=== PATIENT | female | born 1970 | race Caucasian/White ===

== ENCOUNTER → 2017-02-02 | Outpatient (CLI) | payer OTHER ==
[~2017-02-02] MED LIST: MULT-212 PO; OMEG1CAP6 PO; OMEP20TA63 PO
--- NOTE | 2017-02-02 16:49 | KCIC ---
INDICATION: Low back pain and left radiculopathy. Left leg numbness. Symptoms have developed within the last couple of weeks. TECHNIQUE: Sagittal T1, sagittal T2, sagittal STIR, axial T1, and axial T2 sequences are provided. No comparison is available. FINDINGS: There is no malalignment. There is no marrow edema. There is no worrisome marrow lesion. There is an L1 hemangioma. There is minimal disc desiccation. Disc height is relatively maintained. The conus medullaris is normal in signal intensity and in position. Subcutaneous edema is noted. The numbering system assumes 5 lumbar type vertebral bodies. Findings by individual level are as follows: L1-L2, L2-L3: There is no canal or foraminal compromise. L3-L4: There is a diffuse disc bulge and there is a left foraminal herniation with annular fissure. There is minimal left foraminal narrowing, herniation does not contact the exiting nerve root. L4-L5: Minimal disc bulge and facet hypertrophy are noted without canal or foraminal compromise. L5-S1: Minimal facet hypertrophy is noted without canal or foraminal compromise. IMPRESSION: Minimal degenerative disc disease and facet hypertrophy are noted in the lumbar spine, without any high-grade canal or foraminal compromise. Electronically signed by: Ranjit Cifuentes MD (02/02/2017 4:47 PM) [facility]
== END | disposition home or self-care (01) ==
LOC: KCIC MRI 15:41
DX: M51.17 Intervertebral disc disorders with radiculopathy, lumbosacral region (principal); R20.0 Anesthesia of skin
CPT/HCPCS: 72148

== ENCOUNTER → 2017-02-04 | Outpatient (CLI) | payer OTHER ==
[2017-02-04 16:16] LABS: CREATININE 0.8 mg/dL (0.6-1.0); GFR 77.2
== END | disposition home or self-care (01) ==
LOC: LAB 15:29
PROVIDERS: ATTEND Psychiatry & Neurology Neurology
DX: R20.2 Paresthesia of skin (principal)
CPT/HCPCS: 36415; 82525; 82565; 82607; 84520

== ENCOUNTER 2017-02-11 15:34 | Emergency (ER) | payer OTHER ==
[~2017-02-11] VITALS: Ht 162.6 cm; Wt 122.2 kg
[~2017-02-11 15:34] MED LIST changes: -GADOBUTROL 7.5 MMOL/7.5 ML VIAL IV ONE
[2017-02-11] MEDS ORDERED: DEXAMETHASONE SOD PHOS 20 MG/5 ML VIAL. IV ONE (16:15)
[2017-02-11 16:16] VITALS: BP 127/68
[2017-02-11 16:17] LABS: BASO # 0.1 x10^3/uL (0.0-0.2); BASO % 1 % (0-3); EOS % 9 % (0-3); LYMPH # 2.2 x10^3/uL (1.0-4.8); LYMPH % 19 % (24-48); MEAN CORPUSCULAR HEMOGLOBIN 29 pg (25-35); MEAN CORPUSCULAR HGB CONC 34 g/dL (31-37); MEAN CORPUSCULAR VOLUME 84 fL (79-100); MONO % 7 % (0-9); NEUT % 65 % (31-73); PLATELET COUNT 246 x10^3/uL (140-400); RED BLOOD COUNT 5.22 x10^6/uL (3.50-5.40); RED CELL DISTRIBUTION WIDTH 12.3 % (11.5-14.5); WHITE BLOOD COUNT 11.8 x10^3/uL (4.0-11.0)
--- NOTE | 2017-02-11 16:17 | PHYS DOC ---
Past Medical History Past Medical History: GERD, Ovarian Cyst Past Surgical History: Cholecystectomy, Additional Past Surgical Histo: OVARY REMOVAL Alcohol Use: Heavy Drug Use: None Adult General Chief Complaint Chief Complaint: OTHER COMPLAINTS [facility] HPI Patient is a 46 year old female who presents with one month history of intermittent and progressive left leg radicular symptoms denied any back pain but did have bilateral sided upper abdominal pain over this course of time. 3 months prior did have an episode of shingles that around that level on her abdomen. Denies any saddle paresthesias fecal or urinary incontinence or retention. Still able to walk has no complaints involving the upper extremities nor any headache or blurry vision or difficulty speaking or swallowing. In by her PCP about 10 days ago had a lumbar spine MRI done which was essentially unremarkable. Today after following up with a neurologist , and thoracic MRI was obtained which showed a fairly large thoracic spinal cord tumor and involving some cord edema as well. She was referred to our ER for initial evaluation, IV steroids per the request of , and arrangement of neurosurgery transfer to per request (which was done prior to pt arrival in the ED). Review of Systems Review of Systems Constitutional: Denies fever or chills [] Eyes: Denies change in visual acuity, redness, or eye pain [] HENT: Denies nasal congestion or sore throat [] Respiratory: Denies cough or shortness of breath [] Cardiovascular: No additional information not addressed in HPI [] GI: Denies abdominal pain, nausea, vomiting, bloody stools or diarrhea [] : Denies dysuria or hematuria [] Musculoskeletal: Denies back pain or joint pain [] Integument: Denies rash or skin lesions [] Neurologic: Denies headache, focal weakness or sensory changes [] Endocrine: Denies polyuria or polydipsia [] Current Medications Current Medications Current Medications Medications (Trade) Dose Ordered Sig/Parrish Start Time Stop Time Status Last Admin Dose Admin Dexamethasone Sodium Phosphate (Decadron) 10 mg 1X ONCE 02/11/17 16:15 02/11/17 16:16 DC 02/11/17 16:14 10 MG Allergies Allergies Allergies Coded Allergies Type Severity Reaction Last Updated Verified No Known Drug Allergies 08/04/13 No Physical Exam Physical Exam Constitutional: Well developed, well nourished, no acute distress, non-toxic appearance. [] HENT: Normocephalic, atraumatic, bilateral external ears normal, oropharynx moist, no oral exudates, nose normal. [] Eyes: PERRLA, EOMI, conjunctiva normal, no discharge. [] Neck: Normal range of motion, no tenderness, supple, no stridor. [] Cardiovascular:Heart rate regular rhythm, no murmur [] Lungs & Thorax: Bilateral breath sounds clear to auscultation [] Abdomen: Bowel sounds normal, soft, no tenderness, no masses, no pulsatile masses. [] Skin: Warm, dry, no erythema, no rash. No vesicular lesions seen.[] Back: No tenderness, no CVA tenderness. [] Extremities: No tenderness, no cyanosis, no clubbing, ROM intact, no edema. [] Neurologic: Alert and oriented X 3, normal motor function, normal sensory function, no focal deficits noted. 5 out of 5 equal motor strength with dorsiflexion and great toe, plantar flexion of the ankle, and straight leg raises. No pain to palpation over the T or L-spine. Patellar reflexes were difficult to obtain secondary to obesity. [] Psychologic: Affect normal, judgement normal, mood normal. [] Current Patient Data Vital Signs Vital Signs Date Time Temp Pulse Resp B/P (MAP) Pulse Ox O2 Delivery O2 Flow Rate FiO2 02/11/17 15:48 98.0 103 20 140/82 (101) 99 Room Air 98.0 Lab Values Laboratory Tests Test 02/11/17 16:10 White Blood Count 11.8 x10^3/uL (4.0-11.0) H Red Blood Count 5.22 x10^6/uL (3.50-5.40) Hemoglobin 15.0 g/dL (12.0-15.5) Hematocrit 44.0 % (36.0-47.0) Mean Corpuscular Volume 84 fL (79-100) Mean Corpuscular Hemoglobin 29 pg (25-35) Mean Corpuscular Hemoglobin Concent 34 g/dL (31-37) Red Cell Distribution Width 12.3 % (11.5-14.5) Platelet Count 246 x10^3/uL (140-400) Neutrophils (%) (Auto) 65 % (31-73) Lymphocytes (%) (Auto) 19 % (24-48) L Monocytes (%) (Auto) 7 % (0-9) Eosinophils (%) (Auto) 9 % (0-3) H Basophils (%) (Auto) 1 % (0-3) Neutrophils # (Auto) 7.6 x10^3uL (1.8-7.7) Lymphocytes # (Auto) 2.2 x10^3/uL (1.0-4.8) Monocytes # (Auto) 0.8 x10^3/uL (0.0-1.1) Eosinophils # (Auto) 1.0 x10^3/uL (0.0-0.7) H Basophils # (Auto) 0.1 x10^3/uL (0.0-0.2) Sodium Level 139 mmol/L (136-145) Potassium Level 3.7 mmol/L (3.5-5.1) Chloride Level 104 mmol/L (98-107) Carbon Dioxide Level 24 mmol/L (21-32) Anion Gap 11 (6-14) Blood Urea Nitrogen 19 mg/dL (7-20) Creatinine 0.8 mg/dL (0.6-1.0) Estimated GFR (Cockcroft-Gault) 77.2 BUN/Creatinine Ratio 24 (6-20) H Glucose Level 104 mg/dL (70-99) H Calcium Level 9.2 mg/dL (8.5-10.1) Total Bilirubin Pending Aspartate Amino Transferase (AST) Pending Alanine Aminotransferase (ALT) Pending Alkaline Phosphatase Pending Total Protein Pending Albumin Pending Albumin/Globulin Ratio Pending Laboratory Tests 02/11/17 16:10 Laboratory Tests 02/11/17 16:10 EKG EKG [] Radiology/Procedures Radiology/Procedures [] Course & Med Decision Making Course & Med Decision Making Pertinent Labs and Imaging studies reviewed. (See chart for details) [Patient is completely medically stable. 1600 I discussed case on the phone again with Dr. Matthews, 1601 I've contacted [facility] and I am awaiting a call back. In the meantime routine labs obtained and the patient's been given 10 of dexamethasone IV [facility] accepted the transfer team [address] Mcclellan] Hector Disclaimer Dragon Disclaimer This electronic medical record was generated, in whole or in part, using a voice recognition dictation system. Departure Departure Impression: Primary Impression: Spinal cord tumor Disposition: TRANSFER [facility] HOSP Condition: STABLE Referrals: MATTHEW ANGEL (PCP) OFE DUTTON MD Feb 11, 2017 16:17
[2017-02-11 16:30] LABS: CALCIUM 9.2 mg/dL (8.5-10.1); CREATININE 0.8 mg/dL (0.6-1.0); GFR 77.2; POTASSIUM 3.7 mmol/L (3.5-5.1)
[2017-02-11 16:36] LABS: ALBUMIN 3.7 g/dL (3.4-5.0); ALBUMIN/GLOBULIN RATIO 0.9 (1.0-1.7); TOTAL BILIRUBIN 0.2 mg/dL (0.2-1.0); TOTAL PROTEIN 7.7 g/dL (6.4-8.2)
== END 2017-02-11 17:18 | disposition home or self-care (01) ==
LOC: ER 15:34
DX: C72.0 Malignant neoplasm of spinal cord (principal); K21.9 Gastro-esophageal reflux disease without esophagitis; F10.10 Alcohol abuse, uncomplicated
CPT/HCPCS: 36415; 80053; 85025; 96374; 99285; J1100

== ENCOUNTER → 2017-02-11 | Outpatient (CLI) | payer OTHER ==
[~2017-02-11] MED LIST changes: +GADOBUTROL 7.5 MMOL/7.5 ML VIAL IV ONE
--- NOTE | 2017-02-11 13:02 | KCIC ---
MRI of the thoracic spine without and with contrast 02/11/2017 CLINICAL HISTORY: Mid back pain with left leg numbness and tingling for one month. TECHNIQUE: Unenhanced T1-weighted, T2-weighted and inversion recovery sagittal and T1-weighted and T2-weighted axial images of the thoracic spine were obtained. After the intravenous administration of 12 cc of Gadavist, enhanced T1-weighted sagittal and axial images of the thoracic spine were obtained. T2-weighted sagittal images of the cervical, thoracic and lumbar spine were obtained for localization purposes. FINDINGS: No previous imaging studies are available for comparison. Very mild S-shaped curvature of the thoracolumbar spine is seen. The morphology and signal characteristics of all the disks of the thoracic spine are within normal limits. A 1.2 cm hemangioma is seen involving the L1 vertebral body. The thoracic spinal cord is slightly expanded extending from T5-6 to the superior T9 level. Heterogeneous signal intensity is seen throughout the thoracic spinal cord at this level on the T1-weighted and T2-weighted images.This area measures 7.2 x 0.8 x 0.7 cm in craniocaudal, AP and transverse dimensions. Patchy areas of decreased signal intensity are seen on the T1-weighted and T2-weighted images with patchy areas of increased signal intensity noted suggestive of varying stages of hemorrhage. Increased signal intensity is seen on the T2-weighted images consistent most likely with mild cord edema. No area of appreciable contrast enhancement is seen. 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 No additional area of abnormal signal intensity is seen involving the thoracic spinal cord. On the axial images mild degenerative changes are seen involving the mid and lower thoracic disc spaces. These consist of minimal generalized disc bulges and degenerative changes involving the facet joints. These findings do not result in significant central spinal canal or neural foraminal stenosis at any level. IMPRESSION: The thoracic spinal cord is slightly expanded extending from T5-6 to the superior T9 level. Heterogeneous signal intensity is seen throughout the thoracic spinal cord at this level which measures 7.2 cm in greatest diameter. Increased signal intensity is seen on the T2-weighted images in this region suggestive of mild cord edema. These findings are felt to most likely represent a spinal cord neoplasm as outlined above. Electronically signed by: Yoni Dill MD (02/11/2017 12:59 PM) [facility]
== END | disposition home or self-care (01) ==
LOC: KCIC MRI 08:52
PROVIDERS: ATTEND Psychiatry & Neurology Neurology
DX: M54.6 Pain in thoracic spine (principal); R20.2 Paresthesia of skin; R20.0 Anesthesia of skin
CPT/HCPCS: 72157; A9585

== ENCOUNTER → 2019-05-05 | Outpatient (CLI) | payer OTHER ==
[~2019-05-05] MED LIST changes: +GABA600T7 PO; +GADOTERATE 7.5 MMOL/15ML VIAL. IVP ONE
--- NOTE | 2019-05-06 15:43 | KCIC ---
THORACIC SPINE WO CONTRAST History: Spinal cord mass. Left-sided numbness. Technique: Multiplanar, multi sequential noncontrast MR imaging was performed of the thoracic spine. Comparison: February 11, 2017 Findings: Hemosiderin staining within the thoracic spinal cord extending from the T5 through the T9 level. Decreased spinal cord edema compared to prior. Focal T2 hyperintense lesion within the right anterior spinal cord at the T7 level measures 3 mm. Normal vertebral body alignment. Normal height. No fracture. No significant canal narrowing. No neuroforaminal narrowing. L1 vertebral body hemangioma. Impression: 1. Mid thoracic spinal cord lesion at the T7 level with adjacent hemosiderin staining, favor spinal cavernous malformation Electronically signed by: Aly Wood DO (05/06/2019 3:40 PM) [facility]
== END | disposition home or self-care (01) ==
LOC: KCIC MRI 07:52
PROVIDERS: ATTEND Physician Assistant Medical
DX: G95.89 Other specified diseases of spinal cord (principal)
CPT/HCPCS: 72146

== ENCOUNTER → 2020-10-11 | Outpatient (CLI) | payer OTHER ==
[~2020-10-11] MED LIST changes: -GADOTERATE 7.5 MMOL/15ML VIAL. IVP ONE
--- NOTE | 2020-10-11 16:43 | KCIC ---
EXAM: MRI BRAIN WITHOUT CONTRAST. HISTORY: Dizziness, abnormal sensation, spinal cavernoma. TECHNIQUE: Magnetic resonance images of the brain were obtained without intravenous contrast. COMPARISON: None. FINDINGS: There is no diffusion restriction. There are no T1 or T2 signal abnormalities. The ventricles are nor mal in size and position. There is mild mucosal thickening within ethmoid air cells and maxillary sinuses. The orbits are unrem arkable. The temporal bones are unremarkable. The calvarium demonstrates no suspicious lesions. IMPRESSION: 1. Negative noncontrast MRI of the brain. Electronically signed by: Luis Daniel Luther MD (10/11/2020 4:41 PM) [facility]
== END ==
LOC: KCIC MRI 14:50
PROVIDERS: ATTEND Physician Assistant Medical
DX: R42 Dizziness and giddiness (principal)
CPT/HCPCS: 70551